=== PATIENT | female | born 1965 | race Caucasian/White ===

== ENCOUNTER 2018-08-24 12:25 | Inpatient (IN) | payer BC ==
[~2018-08-24] VITALS: Ht 157.5 cm; Wt 65.0 kg
[2018-08-24 13:29] LABS: RED CELL DISTRIBUTION WIDTH 14.3 % (11.5-14.5)
[2018-08-24 14:10] LABS: BILIRUBIN TOTAL 0.8 mg/dL (0.20-1.00); CALCIUM 8.8 mg/dL (8.5-10.1); CARBON DIOXIDE 26.2 mmol/L (21-32); CREATININE SERUM 2.5 mg/dL (0.6-1.0); PLATELET COUNT 821 x10^3mcL (130-400); POTASSIUM SERUM 3.4 mmol/L (3.5-5.1); TOTAL PROTEIN, SERUM 7.1 g/dL (6.4-8.2)
[2018-08-24 14:13] LABS: ALBUMIN 1.7 g/dL (3.4-5.0)
[2018-08-24 14:27] LABS: MONOCYTE 1 % (0-7); SEGMENTED NEUTROPHILS 79 % (37-75)
[2018-08-24 14:28] LABS: BAND NEUTROPHIL 18 % (0-10); BASOPHIL 0 % (0-2)
[2018-08-24 14:29] LABS: rbc morphology (normal/abnorm) ABNORMAL (NORMAL)
[2018-08-24 15:12] LABS: MAGNESIUM 1.9 mg/dL (1.8-2.4); PHOSPHOROUS 3.2 mg/dL (2.5-4.9)
[2018-08-24 15:16] LABS: CHOLESTEROL/HDL RATIO 9.9; T3 TOTAL 0.52 ng/mL
[2018-08-24 15:17] LABS: FREE T4 1.5 ng/dL (0.76-1.46); FREE THYROXINE INDEX 2.1 ug/dL (1.4-4.5); T4(THYROXINE) 5.4 ug/dL (4.7-13.3)
[2018-08-24] MEDS ORDERED: IBUPROFEN400 MG PO (15:36)
[2018-08-24 16:39] VITALS: BP 135/97
[2018-08-24 20:00] VITALS: BP 90/58
[2018-08-24 21:00] VITALS: BP 94/61
[2018-08-24 22:00] VITALS: BP 90/40; BP 90/48
[2018-08-24 23:00] VITALS: BP 92/50
[2018-08-25] VITALS (13 sets, daily range): BP systolic 88–114; BP diastolic 50–90
[2018-08-25 05:44] LABS: CALCIUM 6.8 mg/dL (8.5-10.1); CARBON DIOXIDE 16.2 mmol/L (21-32); CREATININE SERUM 1.6 mg/dL (0.6-1.0); MAGNESIUM 1.3 mg/dL (1.8-2.4); PHOSPHOROUS 2.1 mg/dL (2.5-4.9); POTASSIUM SERUM 3.4 mmol/L (3.5-5.1)
[2018-08-25 05:46] LABS: RED CELL DISTRIBUTION WIDTH 14.8 % (11.5-14.5)
[2018-08-25 05:53] LABS: PLATELET COUNT 631 x10^3mcL (130-400)
[2018-08-25 05:56] LABS: BAND NEUTROPHIL 30 % (0-10); SEGMENTED NEUTROPHILS 60 % (37-75); rbc morphology (normal/abnorm) ABNORMAL (NORMAL)
[2018-08-25 05:57] LABS: PLATELET MORPHOLOGY PLATELETS INCREASED
[2018-08-25 13:02] LABS: PATH REVIEW for HEMA YES
[2018-08-25 23:56] LABS: UA SPECIFIC GRAVITY 1.025 (1.005-1.035); microscopic required? YES; urine erythrocyte 1+ (NEGATIVE)
[2018-08-26 00:20] LABS: AMPHETAMINE QUAL UR NONE DETECTED (See below)
[2018-08-26 03:07] VITALS: BP 91/62
[2018-08-26 05:58] LABS: CALCIUM 7.3 mg/dL (8.5-10.1); CARBON DIOXIDE 16.1 mmol/L (21-32); CREATININE SERUM 1.8 mg/dL (0.6-1.0); MAGNESIUM 1.5 mg/dL (1.8-2.4); POTASSIUM SERUM 3.9 mmol/L (3.5-5.1)
[2018-08-26 06:02] LABS: RED CELL DISTRIBUTION WIDTH 14.9 % (11.5-14.5)
[2018-08-26 06:03] LABS: PLATELET COUNT 697 x10^3mcL (130-400)
[2018-08-26 08:30] VITALS: Ht 157.5 cm; Wt 65.0 kg
[2018-08-26 11:32] VITALS: BP 114/69
[2018-08-26 16:05] VITALS: BP 111/74
[2018-08-26 17:53] LABS: UA SPECIFIC GRAVITY 1.025 (1.005-1.035); microscopic required? YES; urine erythrocyte 3+ (NEGATIVE)
[2018-08-26 19:53] VITALS: BP 100/61
[2018-08-26 20:18] VITALS: BP 114/69
[2018-08-26 21:53] VITALS: BP 133/79
[2018-08-27 05:27] VITALS: BP 125/82
[2018-08-27 06:14] LABS: CALCIUM 7.7 mg/dL (8.5-10.1); CARBON DIOXIDE 18.9 mmol/L (21-32); CREATININE SERUM 1.9 mg/dL (0.6-1.0); PHOSPHOROUS 3.6 mg/dL (2.5-4.9); POTASSIUM SERUM 4.3 mmol/L (3.5-5.1)
[2018-08-27 07:33] LABS: PLATELET COUNT 727 x10^3mcL (130-400); RED CELL DISTRIBUTION WIDTH 15.2 % (11.5-14.5)
[2018-08-27 10:22] VITALS: BP 155/95
[2018-08-27 12:07] LABS: ATYPICAL LYMPH 1 %; BAND NEUTROPHIL 3 % (0-10); BASOPHIL 0 % (0-2); MONOCYTE 4 % (0-7); SEGMENTED NEUTROPHILS 87 % (37-75)
[2018-08-27 12:08] LABS: PLATELET MORPHOLOGY PLATELETS INCREASED; acanthocyte (spur cell) 2+; rbc morphology (normal/abnorm) ABNORMAL (NORMAL)
[2018-08-27 12:48] VITALS: BP 125/74
[2018-08-27 18:22] VITALS: BP 122/79
[2018-08-27 21:11] VITALS: BP 139/93
[2018-08-28 05:34] VITALS: BP 129/71
[2018-08-28 07:13] LABS: CALCIUM 7.4 mg/dL (8.5-10.1); CARBON DIOXIDE 16.9 mmol/L (21-32); CREATININE SERUM 1.6 mg/dL (0.6-1.0); MAGNESIUM 2.1 mg/dL (1.8-2.4); PHOSPHOROUS 4.3 mg/dL (2.5-4.9); POTASSIUM SERUM 3.9 mmol/L (3.5-5.1)
[2018-08-28 07:45] LABS: PLATELET COUNT 693 x10^3mcL (130-400); RED CELL DISTRIBUTION WIDTH 15.1 % (11.5-14.5)
[2018-08-28 09:10] VITALS: BP 138/88
[2018-08-28 11:18] LABS: BAND NEUTROPHIL 1 % (0-10); BASOPHIL 0 % (0-2); MONOCYTE 3 % (0-7); SEGMENTED NEUTROPHILS 86 % (37-75)
[2018-08-28 11:27] LABS: PLATELET MORPHOLOGY PLATELETS INCREASED; rbc morphology (normal/abnorm) ABNORMAL (NORMAL)
[2018-08-28 13:13] VITALS: BP 159/92
[2018-08-28 17:49] VITALS: BP 164/93
[2018-08-28 20:14] VITALS: BP 137/86
[2018-08-29] VITALS (7 sets, daily range): BP systolic 111–1523; BP diastolic 38–88
[2018-08-29 06:53] LABS: IRON 22 ug/dL (50-170); TOTAL IRON BINDING CAPACITY 120 ug/dL (250-450)
[2018-08-29 08:50] LABS: PLATELET COUNT 643 x10^3mcL (130-400); RED CELL DISTRIBUTION WIDTH 15.3 % (11.5-14.5)
[2018-08-29 08:53] LABS: BILIRUBIN TOTAL 0.4 mg/dL (0.20-1.00); CALCIUM 7.2 mg/dL (8.5-10.1); CARBON DIOXIDE 22.5 mmol/L (21-32); CREATININE SERUM 1.2 mg/dL (0.6-1.0); POTASSIUM SERUM 3.1 mmol/L (3.5-5.1)
[2018-08-29 08:54] LABS: TOTAL PROTEIN, SERUM 5.5 g/dL (6.4-8.2)
[2018-08-29 10:39] LABS: ATYPICAL LYMPH 1 %; BAND NEUTROPHIL 0 % (0-10); BASOPHIL 0 % (0-2); MONOCYTE 4 % (0-7); SEGMENTED NEUTROPHILS 91 % (37-75)
[2018-08-29 10:40] LABS: rbc morphology (normal/abnorm) ABNORMAL (NORMAL)
[2018-08-29 10:41] LABS: PLATELET MORPHOLOGY PLATELETS INCREASED
[2018-08-30 06:02] VITALS: BP 127/79
[2018-08-30 06:27] LABS: CALCIUM 7.3 mg/dL (8.5-10.1); CARBON DIOXIDE 23.4 mmol/L (21-32); CREATININE SERUM 1.2 mg/dL (0.6-1.0); MAGNESIUM 1.7 mg/dL (1.8-2.4); PHOSPHOROUS 3.3 mg/dL (2.5-4.9); POTASSIUM SERUM 3.6 mmol/L (3.5-5.1)
[2018-08-30 07:29] LABS: PLATELET COUNT 698 x10^3mcL (130-400); RED CELL DISTRIBUTION WIDTH 15.1 % (11.5-14.5)
[2018-08-30 08:32] VITALS: BP 147/84
[2018-08-30 10:05] LABS: ATYPICAL LYMPH 1 %; BAND NEUTROPHIL 2 % (0-10); BASOPHIL 0 % (0-2); MONOCYTE 1 % (0-7); SEGMENTED NEUTROPHILS 85 % (37-75)
[2018-08-30 10:06] LABS: PLATELET MORPHOLOGY PLATELETS INCREASED; rbc morphology (normal/abnorm) ABNORMAL (NORMAL)
[2018-08-30 13:30] VITALS: BP 148/85
[2018-08-30 16:39] VITALS: BP 144/67
[2018-08-30 21:04] VITALS: BP 144/88
[2018-08-31 05:51] VITALS: BP 128/78
[2018-08-31 06:35] LABS: CALCIUM 7.2 mg/dL (8.5-10.1); CARBON DIOXIDE 25.3 mmol/L (21-32); CHLORIDE SERUM 103 mmol/L (98-107); GFR1 > 60 mL/min; GLUCOSE SERUM 113 mg/dL (74-106); MAGNESIUM 1.7 mg/dL (1.8-2.4); POTASSIUM SERUM 3.9 mmol/L (3.5-5.1); SODIUM SERUM 133 mmol/L (136-145)
[2018-08-31 07:10] LABS: PLATELET COUNT 586 x10^3mcL (130-400); RED CELL DISTRIBUTION WIDTH 15.1 % (11.5-14.5)
[2018-08-31 08:45] LABS: BAND NEUTROPHIL 0 % (0-10); BASOPHIL 0 % (0-2); MONOCYTE 4 % (0-7); SEGMENTED NEUTROPHILS 87 % (37-75)
[2018-08-31 08:46] LABS: rbc morphology (normal/abnorm) ABNORMAL (NORMAL)
[2018-08-31 08:47] LABS: PLATELET MORPHOLOGY PLATELETS INCREASED
[2018-08-31 11:19] VITALS: BP 126/76
[2018-08-31 17:36] VITALS: BP 143/71
[2018-08-31 20:50] VITALS: BP 169/97
[2018-09-01 05:58] VITALS: BP 135/80
[2018-09-01 06:32] LABS: CALCIUM 7.7 mg/dL (8.5-10.1); CARBON DIOXIDE 23.5 mmol/L (21-32); CHLORIDE SERUM 101 mmol/L (98-107); CREATININE SERUM 0.8 mg/dL (0.6-1.0); GFR1 > 60 mL/min; GLUCOSE SERUM 145 mg/dL (74-106); MAGNESIUM 1.8 mg/dL (1.8-2.4); PHOSPHOROUS 3.2 mg/dL (2.5-4.9); POTASSIUM SERUM 4.2 mmol/L (3.5-5.1); SODIUM SERUM 133 mmol/L (136-145)
[2018-09-01 07:03] LABS: RED CELL DISTRIBUTION WIDTH 15.4 % (11.5-14.5)
[2018-09-01 07:04] LABS: PLATELET COUNT 629 x10^3mcL (130-400)
[2018-09-01 08:52] VITALS: BP 126/85
[2018-09-01 13:02] VITALS: BP 164/95
[2018-09-01 13:39] LABS: SEGMENTED NEUTROPHILS 81 % (37-75)
[2018-09-01 13:40] LABS: BAND NEUTROPHIL 1 % (0-10); MONOCYTE 4 % (0-7); rbc morphology (normal/abnorm) ABNORMAL (NORMAL)
[2018-09-01 13:41] LABS: PLATELET MORPHOLOGY PLATELETS INCREASED
[2018-09-01 16:32] VITALS: BP 161/98
[2018-09-01 21:22] VITALS: BP 133/54; BP 162/93
[2018-09-02 04:51] VITALS: BP 160/90
[2018-09-02 06:24] LABS: BASOPHIL % 0.1 % (0-2); CALCIUM 7.8 mg/dL (8.5-10.1); CARBON DIOXIDE 26.3 mmol/L (21-32); CHLORIDE SERUM 99 mmol/L (98-107); CREATININE SERUM 0.9 mg/dL (0.6-1.0); GFR1 > 60 mL/min; GLUCOSE SERUM 167 mg/dL (74-106); MAGNESIUM 1.6 mg/dL (1.8-2.4); PHOSPHOROUS 3.5 mg/dL (2.5-4.9); SODIUM SERUM 129 mmol/L (136-145)
[2018-09-02 06:45] LABS: PLATELET COUNT 617 x10^3mcL (130-400); RED CELL DISTRIBUTION WIDTH 16.1 % (11.5-14.5)
[2018-09-02 07:53] LABS: BAND NEUTROPHIL 0 % (0-10); BASOPHIL 0 % (0-2); MONOCYTE 3 % (0-7); PLATELET MORPHOLOGY PLATELETS INCREASED; SEGMENTED NEUTROPHILS 85 % (37-75); rbc morphology (normal/abnorm) ABNORMAL (NORMAL)
[2018-09-02 10:16] VITALS: BP 157/93
[2018-09-02 18:06] VITALS: BP 136/81
[2018-09-02 20:07] VITALS: BP 126/78
[2018-09-03 05:33] VITALS: BP 120/76
[2018-09-03 06:30] LABS: CALCIUM 7.8 mg/dL (8.5-10.1); CARBON DIOXIDE 29.4 mmol/L (21-32); CHLORIDE SERUM 99 mmol/L (98-107); CREATININE SERUM 0.8 mg/dL (0.6-1.0); GFR1 > 60 mL/min; GLUCOSE SERUM 114 mg/dL (74-106); MAGNESIUM 1.7 mg/dL (1.8-2.4); PHOSPHOROUS 3.4 mg/dL (2.5-4.9); POTASSIUM SERUM 4.6 mmol/L (3.5-5.1); SODIUM SERUM 133 mmol/L (136-145)
[2018-09-03 07:18] LABS: BASOPHIL % 0.3 % (0-2)
[2018-09-03 08:58] VITALS: BP 123/77
[2018-09-03 10:11] LABS: RED CELL DISTRIBUTION WIDTH 15.9 % (11.5-14.5)
[2018-09-03 15:42] LABS: PLATELET COUNT 731 x10^3mcL (130-400)
[2018-09-03 16:47] VITALS: BP 115/77
[2018-09-03 20:30] VITALS: BP 128/79
[2018-09-04 05:15] VITALS: BP 117/70
[2018-09-04 07:53] VITALS: BP 128/76
[2018-09-04 12:25] VITALS: BP 127/96
[2018-09-04 12:40] VITALS: BP 136/79
[2018-09-04 14:54] LABS: BASOPHIL % 0.6 % (0-2)
[2018-09-04 14:58] LABS: CALCIUM 7.6 mg/dL (8.5-10.1); CARBON DIOXIDE 29.9 mmol/L (21-32); CHLORIDE SERUM 95 mmol/L (98-107); CREATININE SERUM 0.9 mg/dL (0.6-1.0); GFR1 > 60 mL/min; GLUCOSE SERUM 201 mg/dL (74-106); MAGNESIUM 1.8 mg/dL (1.8-2.4); PHOSPHOROUS 3.9 mg/dL (2.5-4.9); SODIUM SERUM 127 mmol/L (136-145)
[2018-09-04 15:25] LABS: RED CELL DISTRIBUTION WIDTH 14.7 % (11.5-14.5)
[2018-09-04 15:30] LABS: PLATELET COUNT 827 x10^3mcL (130-400)
[2018-09-04 16:30] VITALS: BP 103/73
[2018-09-04 20:52] VITALS: BP 128/82
[2018-09-05 05:13] VITALS: BP 124/71
[2018-09-05 06:16] LABS: BASOPHIL % 0.5 % (0-2); RED CELL DISTRIBUTION WIDTH 14.3 % (11.5-14.5)
[2018-09-05 06:23] LABS: CARBON DIOXIDE 30.3 mmol/L (21-32); CHLORIDE SERUM 99 mmol/L (98-107); CREATININE SERUM 0.9 mg/dL (0.6-1.0); GFR1 > 60 mL/min; GLUCOSE SERUM 108 mg/dL (74-106); PHOSPHOROUS 4.3 mg/dL (2.5-4.9); POTASSIUM SERUM 4.8 mmol/L (3.5-5.1); SODIUM SERUM 133 mmol/L (136-145)
[2018-09-05 07:28] LABS: PLATELET COUNT 838 x10^3mcL (130-400)
[2018-09-05 07:47] VITALS: BP 125/74
[2018-09-05 13:01] VITALS: BP 140/81
[2018-09-05 16:38] VITALS: BP 145/83
[2018-09-05 21:02] VITALS: BP 104/66
[2018-09-06 04:30] VITALS: BP 115/70
[2018-09-06 06:08] LABS: CARBON DIOXIDE 31.3 mmol/L (21-32); CHLORIDE SERUM 97 mmol/L (98-107); CREATININE SERUM 0.9 mg/dL (0.6-1.0); GFR1 > 60 mL/min; GLUCOSE SERUM 83 mg/dL (74-106); PHOSPHOROUS 4.3 mg/dL (2.5-4.9); POTASSIUM SERUM 4.2 mmol/L (3.5-5.1); SODIUM SERUM 130 mmol/L (136-145)
[2018-09-06 06:48] LABS: RED CELL DISTRIBUTION WIDTH 14.7 % (11.5-14.5)
[2018-09-06 06:50] LABS: PLATELET COUNT 1001 x10^3mcL (130-400)
[2018-09-06 09:17] VITALS: BP 136/80
[2018-09-06 10:37] LABS: BAND NEUTROPHIL 1 % (0-10); BASOPHIL 0 % (0-2); MONOCYTE 5 % (0-7); PLATELET MORPHOLOGY PLATELETS INCREASED; SEGMENTED NEUTROPHILS 78 % (37-75); rbc morphology (normal/abnorm) ABNORMAL (NORMAL)
[2018-09-06 14:45] VITALS: BP 99/60
[2018-09-06 17:17] VITALS: BP 113/73
[2018-09-06 20:03] VITALS: BP 108/71
[2018-09-07] VITALS (7 sets, daily range): BP systolic 96–125; BP diastolic 61–76
[2018-09-07 06:04] LABS: CALCIUM 8.1 mg/dL (8.5-10.1); CARBON DIOXIDE 31.2 mmol/L (21-32); CHLORIDE SERUM 99 mmol/L (98-107); CREATININE SERUM 0.8 mg/dL (0.6-1.0); GFR1 > 60 mL/min; GLUCOSE SERUM 62 mg/dL (74-106); MAGNESIUM 2.1 mg/dL (1.8-2.4); PHOSPHOROUS 4.3 mg/dL (2.5-4.9); SODIUM SERUM 133 mmol/L (136-145)
[2018-09-07 06:54] LABS: RED CELL DISTRIBUTION WIDTH 15.5 % (11.5-14.5)
[2018-09-07 06:56] LABS: BASOPHIL % 2.5 % (0-2); PLATELET COUNT 814 x10^3mcL (130-400)
[2018-09-07 08:26] LABS: rbc morphology (normal/abnorm) ABNORMAL (NORMAL)
[2018-09-07 19:50] LABS: BASOPHIL % 1.7 % (0-2)
[2018-09-07 20:05] LABS: PLATELET COUNT 854 x10^3mcL (130-400)
[2018-09-08 06:03] VITALS: BP 118/73
[2018-09-08 06:27] LABS: CALCIUM 7.4 mg/dL (8.5-10.1); CARBON DIOXIDE 26.5 mmol/L (21-32); CHLORIDE SERUM 101 mmol/L (98-107); CREATININE SERUM 0.7 mg/dL (0.6-1.0); GFR1 > 60 mL/min; GLUCOSE SERUM 77 mg/dL (74-106); PHOSPHOROUS 3.5 mg/dL (2.5-4.9); POTASSIUM SERUM 4.1 mmol/L (3.5-5.1); SODIUM SERUM 134 mmol/L (136-145)
[2018-09-08 07:03] LABS: BASOPHIL % 3.6 % (0-2); PLATELET COUNT 773 x10^3mcL (130-400)
[2018-09-08 07:47] VITALS: BP 138/65
[2018-09-08 12:00] VITALS: BP 135/84
[2018-09-08] MEDS ORDERED: ADA30 PO (17:10)
[2018-09-08] MEDS ORDERED: FER300 PO (17:10)
[2018-09-08] MEDS ORDERED: APAP/HYDROCODON1 T13 PO (17:10)
[2018-09-08] MEDS ORDERED: LEV500 PO (17:10)
[2018-09-08] MEDS ORDERED: LOV40I SC (17:10)
[2018-09-08] MEDS ORDERED: TYL325 PO (17:11)
[2018-09-08] MEDS ORDERED: L20 PO (17:11)
[2018-09-08] MEDS ORDERED: ZOFI IV (17:11)
[2018-09-08] MEDS ORDERED: MOR4I IV (17:11)
[2018-09-08] MEDS ORDERED: BG FS (17:11)
[2018-09-08] MEDS ORDERED: COL100 PO (17:11)
[2018-09-08] MEDS ORDERED: DEXPF IV (17:11)
[2018-09-08] MEDS ORDERED: KCL20L PO (17:11)
[2018-09-08] MEDS ORDERED: PROTONIX40 MG/Pac1 PO (17:11)
[2018-09-08] MEDS ORDERED: LEVEMIR100 U/M1 SQ (17:12)
[2018-09-08] MEDS ORDERED: METFORMIN HCL1000 MG PO (17:12)
[2018-09-08] MEDS ORDERED: HUMULIN R100 U/1 M1 SC (17:12)
[2018-09-08] MEDS ORDERED: ROC1PM IV (18:01)
[2018-09-08] MEDS ORDERED: LEV500PM IV ×2 (18:01→18:09)
[2018-09-08 18:37] VITALS: BP 107/71
== END 2018-09-08 19:14 | DRG 853 ==
LOC: ED 12:25 → MU 14:28 → IC 14:28 → ED 14:28 → DU 14:28 → IC 16:06 → DU 08-26 16:14 → MU 09-01 11:47
PROVIDERS: Emergency Medicine; Family Medicine; Internal Medicine; Surgery
PROC: 0JB70ZZ Excision of Back Subcutaneous Tissue and Fascia, Open Approach (ICD-10-PCS; principal; 2018-08-25 14:30)
PROC: 30233L1 Transfusion of Nonautologous Fresh Plasma into Peripheral Vein, Percutaneous Approach (ICD-10-PCS; 2018-08-26)
PROC: 30233N1 Transfusion of Nonautologous Red Blood Cells into Peripheral Vein, Percutaneous Approach (ICD-10-PCS; 2018-08-26)
PROC: 30233K1 Transfusion of Nonautologous Frozen Plasma into Peripheral Vein, Percutaneous Approach (ICD-10-PCS; 2018-08-26)
PROC: 0JB70ZZ Excision of Back Subcutaneous Tissue and Fascia, Open Approach (ICD-10-PCS; 2018-08-27)
PROC: 0JJW3ZZ Inspection of Lower Extremity Subcutaneous Tissue and Fascia, Percutaneous Approach (ICD-10-PCS; 2018-09-01)
PROC: 05HM33Z Insertion of Infusion Device into Right Internal Jugular Vein, Percutaneous Approach (ICD-10-PCS; 2018-09-06)
PROC: B543ZZA Ultrasonography of Right Jugular Veins, Guidance (ICD-10-PCS; 2018-09-06)
PROC: 02HV33Z Insertion of Infusion Device into Superior Vena Cava, Percutaneous Approach (ICD-10-PCS; 2018-09-07)
PROC: B548ZZA Ultrasonography of Superior Vena Cava, Guidance (ICD-10-PCS; 2018-09-07)
DX: A41.9 Sepsis, unspecified organism (principal); E11.00 Type 2 diabetes mellitus with hyperosmolarity without nonketotic hyperglycemic-hyperosmolar coma (NKHHC); N17.0 Acute kidney failure with tubular necrosis; M72.6 Necrotizing fasciitis; E43 Unspecified severe protein-calorie malnutrition; L03.312 Cellulitis of back [any part except buttock and flank]; E87.1 Hypo-osmolality and hyponatremia; B37.49 Other urogenital candidiasis; L03.113 Cellulitis of right upper limb; L02.31 Cutaneous abscess of buttock; J90 Pleural effusion, not elsewhere classified; N18.3 Chronic kidney disease, stage 3 (moderate); B95.61 Methicillin susceptible Staphylococcus aureus infection as the cause of diseases classified elsewhere; W18.39XA Other fall on same level, initial encounter; E83.39 Other disorders of phosphorus metabolism; E11.22 Type 2 diabetes mellitus with diabetic chronic kidney disease; E83.42 Hypomagnesemia; D63.8 Anemia in other chronic diseases classified elsewhere; R65.20 Severe sepsis without septic shock; E87.6 Hypokalemia; Z90.721 Acquired absence of ovaries, unilateral; Z80.0 Family history of malignant neoplasm of digestive organs; Z80.1 Family history of malignant neoplasm of trachea, bronchus and lung; Z85.43 Personal history of malignant neoplasm of ovary; Z68.26 Body mass index [BMI] 26.0-26.9, adult; Y93.89 Activity, other specified; Y92.89 Other specified places as the place of occurrence of the external cause; Y99.8 Other external cause status; Z79.84 Long term (current) use of oral hypoglycemic drugs
CPT/HCPCS: 36600; 49406; 82962; 83880; 84439; 85060; 94150; 97110-GP; 97116-GP; 97530-GP; C1751; J0295; J0696; J0885-EC; J1170; J1642; J1644; J1650; J1815; J1885; J1940; J1956; J2001; J2060; J2270; J2405; J2543; J2704; J3010; J3370; J3475; J3490; J7030; J7040; J7050; P9016; P9059; Q0092; Q0163; Q9967